=== PATIENT | male | born 1950 | race Caucasian/White ===

== ENCOUNTER 2017-07-23 08:57 | Emergency (ER) | payer BC ==
[~2017-07-23] VITALS: Ht 190.5 cm; Wt 103.0 kg
[~2017-07-23 08:57] MED LIST: ALLO100 PO; ASPI81EC PO; ATOR80 PO; BASAGLAR K100 UNIT/1 SC; CALC.25; CARV3.125 PO; CARV6.25 PO; CLOP75 PO; COLCRYS0.6 MG PO; DOCU100; ENTRESTO 24 MG1 EACH PO; FURO80 PO; GLIP5 PO; HYDRA25 PO; INSUASPI SUBQ; INSULANI SUBQ; INSULANPEN; MECL25 PO; METO2.5; METO2.5 PO; MIRALAX119 GM PO; NITR.1TP TOP; OXYC5; PANT40 PO; PARI1 PO; POTA10T PO; POTCHL20ER PO; Percocet 10-321 EACH PO; SENN187 PO; SPIR25 PO; Stool Softener100 MG PO; Systane 0.3-0.415 ML BOTHEYES; TEMA15; TEMA15 PO; WARF4 PO
[2017-07-23] MEDS ORDERED: METO10 PO (09:30)
[2017-07-23 09:53] LABS: BASOPHILS ABSOLUTE AUTO 0.04 K/mm3 (0.00-0.23); BASOPHILS PERCENT AUTO 1 % (0-2); EOSINOPHILS ABSOLUTE AUTO 0.56 K/mm3 (0.00-0.68); EOSINOPHILS PERCENT AUTO 7 % (0-6); Hematocrit 37.9 % (37.0-53.0); Hemoglobin 11.8 g/dL (13.5-17.5); IMMATURE GRAN ABSOLUTE AUTO 0.02 K/mm3 (0.00-0.10); IMMATURE GRAN PERCENT AUTO 0 % (0-1); LYMPHOCYTES ABSOLUTE AUTO 0.46 K/mm3 (0.84-5.20); LYMPHOCYTES PERCENT AUTO 6 % (21-46); MONOCYTES ABSOLUTE AUTO 0.56 K/mm3 (0.16-1.47); MONOCYTES PERCENT AUTO 7 % (4-13); Mean Corpuscular HGB 28.8 pg (26.0-34.0); Mean Corpuscular HGB Conc 31.1 g/dL (31.5-36.5); Mean Platelet Volume 12.4 fL (9.1-12.4); NEUTROPHILS PERCENT AUTO 78 % (41-73); Platelet Count 172 K/mm3 (150-400); RDW Coefficient Variation 17.6 % (11.7-14.2); RDW Standard Deviation 59.6 fL (35.1-46.3); White Blood Cell Count 7.54 K/mm3 (4.00-11.30)
[2017-07-23 09:58] LABS: Mean Corpuscular Volume 92 fL (80-100)
[2017-07-23 10:13] LABS: Albumin, Blood 3.3 g/dL (3.4-5.0); Albumin/Globulin Ratio 0.9 (0.8-1.8); Bilirubin, Total 1.2 mg/dL (0.1-1.0); Bun/Creatinine Ratio 28.2 (12.0-20.0); Creatinine, Blood 2.84 mg/dL (0.60-1.20); Globulin, Blood 3.6 g/dL (2.2-4.0); Potassium, Blood 4.2 mmol/L (3.5-5.5); Total Protein, Blood 6.9 g/dL (6.4-8.2); Troponin I 0.04 ng/mL (0.000-0.040)
[2017-07-23] MEDS ORDERED: Lasix40 MG PO (10:54)
== END 2017-07-23 12:39 | disposition home or self-care (01) ==
LOC: ER 08:57
PROVIDERS: Emergency Medicine
DX: I11.0 Hypertensive heart disease with heart failure (principal); I50.9 Heart failure, unspecified; R60.0 Localized edema; I48.91 Unspecified atrial fibrillation
CPT/HCPCS: 36415; 71046; 80053; 83880; 84484; 85025; 93005; 93010; 96374; 99283; J1940

== ENCOUNTER 2017-07-25 10:40 | Day surgery (SDC) | payer BC ==
[~2017-07-25 10:40] MED LIST changes: +Lasix40 MG PO; +METO10 PO
== END 2017-07-25 16:00 | disposition home or self-care (01) ==
LOC: ATC 10:40
DX: I11.0 Hypertensive heart disease with heart failure (principal); I42.9 Cardiomyopathy, unspecified; E11.40 Type 2 diabetes mellitus with diabetic neuropathy, unspecified; I48.0 Paroxysmal atrial fibrillation; I50.40 Unspecified combined systolic (congestive) and diastolic (congestive) heart failure; Z79.4 Long term (current) use of insulin
CPT/HCPCS: 96365; J1940

== ENCOUNTER 2017-09-19 09:09 | Inpatient (IN) | payer MEDICARE, BC ==
[~2017-09-19] VITALS: Ht 190.5 cm; Wt 99.8 kg
[2017-09-19] MEDS ORDERED: METO2.5 PO (09:44)
[2017-09-19] MEDS ORDERED: TORSE20 PO (09:45)
[2017-09-19] MEDS ORDERED: POTCHL20ER PO (09:46)
[2017-09-19] MEDS ORDERED: SENEXON-S TABL1 EACH (09:48)
[2017-09-19 09:53] LABS: BASOPHILS ABSOLUTE AUTO 0.02 K/mm3 (0.00-0.23); BASOPHILS PERCENT AUTO 0 % (0-2); EOSINOPHILS ABSOLUTE AUTO 0.27 K/mm3 (0.00-0.68); EOSINOPHILS PERCENT AUTO 4 % (0-6); Hemoglobin 11.9 g/dL (13.5-17.5); IMMATURE GRAN ABSOLUTE AUTO 0.03 K/mm3 (0.00-0.10); IMMATURE GRAN PERCENT AUTO 0 % (0-1); LYMPHOCYTES ABSOLUTE AUTO 0.47 K/mm3 (0.84-5.20); LYMPHOCYTES PERCENT AUTO 7 % (21-46); MONOCYTES ABSOLUTE AUTO 0.33 K/mm3 (0.16-1.47); MONOCYTES PERCENT AUTO 5 % (4-13); Mean Corpuscular HGB 28.7 pg (26.0-34.0); Mean Corpuscular HGB Conc 31.3 g/dL (31.5-36.5); Mean Corpuscular Volume 92 fL (80-100); Mean Platelet Volume 12.2 fL (9.1-12.4); NEUTROPHILS ABSOLUTE AUTO 6.07 K/mm3 (1.96-9.15); NEUTROPHILS PERCENT AUTO 84 % (41-73); Platelet Count 138 K/mm3 (150-400); RDW Coefficient Variation 19.3 % (11.7-14.2); RDW Standard Deviation 63.8 fL (35.1-46.3); Red Blood Cell Count 4.14 M/mm3 (4.30-5.90); White Blood Cell Count 7.19 K/mm3 (4.00-11.30)
[2017-09-19 10:08] LABS: Magnesium, Blood 3.6 mg/dL (1.6-2.4); Troponin I 0.106 ng/mL (0.000-0.040)
[2017-09-19 10:09] LABS: Albumin, Blood 3.8 g/dL (3.4-5.0); Creatinine, Blood 4.31 mg/dL (0.60-1.20); Globulin, Blood 3.9 g/dL (2.2-4.0); Potassium, Blood 3.8 mmol/L (3.5-5.5); Total Protein, Blood 7.7 g/dL (6.4-8.2)
[2017-09-19 10:11] LABS: International Normalized Ratio 1.3; Prothrombin Time Results 13.2 Sec (9.7-11.5)
[2017-09-19 10:12] LABS: Thyroid Stimulating Hormone 2.81 uIU/mL (0.360-4.800)
[2017-09-19 10:16] LABS: Bun/Creatinine Ratio 38.7 (12.0-20.0)
[2017-09-19 10:50] LABS: Base Excess Venous 3.2 mmol/L; Bicarbonate Venous 26.2 mmol/L (24.0-30.0); PCO2 Venous 48.7 mmHg (38-42); PO2 Venous 46.4 mmHg (38-42); pH Blood Venous 7.37 (7.34-7.37)
[2017-09-19] MEDS ORDERED: FURO80 PO (14:50)
[2017-09-19] MEDS ORDERED: BASAGLAR K100 UNIT/1 SC (14:52)
[2017-09-20 05:41] LABS: Albumin, Blood 3.1 g/dL (3.4-5.0); Anion Gap 12 mmol/L (6-16); Blood Urea Nitrogen 170 mg/dL (8-24); Bun/Creatinine Ratio 39.6 (12.0-20.0); CO2, Blood 30 mmol/L (21-32); Calcium, Blood 8.7 mg/dL (8.5-10.1); Chloride, Blood 95 mmol/L (98-108); Creatinine, Blood 4.29 mg/dL (0.60-1.20); Glomerular Filtration Rate 15 (60-); Glucose, Blood 83 mg/dL (70-99); Phosphorus, Blood 5.4 mg/dL (2.5-4.9); Sodium, Blood 137 mmol/L (136-145)
[2017-09-21 08:20] LABS: Magnesium, Blood 3.3 mg/dL (1.6-2.4)
[2017-09-21 08:28] LABS: Bun/Creatinine Ratio 44.9 (12.0-20.0); Calcium, Blood 9.5 mg/dL (8.5-10.1); Creatinine, Blood 3.92 mg/dL (0.60-1.20); Potassium, Blood 3.1 mmol/L (3.5-5.5)
== END 2017-09-21 17:36 | DRG 291 ==
LOC: ER 09:09 → MEDS 09:10
PROVIDERS: Emergency Medicine; Internal Medicine
DX: I13.2 Hypertensive heart and chronic kidney disease with heart failure and with stage 5 chronic kidney disease, or end stage renal disease (principal); I50.43 Acute on chronic combined systolic (congestive) and diastolic (congestive) heart failure; N18.5 Chronic kidney disease, stage 5; F11.20 Opioid dependence, uncomplicated; E11.40 Type 2 diabetes mellitus with diabetic neuropathy, unspecified; E11.21 Type 2 diabetes mellitus with diabetic nephropathy; E11.22 Type 2 diabetes mellitus with diabetic chronic kidney disease; I25.5 Ischemic cardiomyopathy; R53.1 Weakness; I48.2 Chronic atrial fibrillation; I25.10 Atherosclerotic heart disease of native coronary artery without angina pectoris; M19.90 Unspecified osteoarthritis, unspecified site; Z66 Do not resuscitate; K21.9 Gastro-esophageal reflux disease without esophagitis; Z51.5 Encounter for palliative care; Z88.1 Allergy status to other antibiotic agents; Z88.8 Allergy status to other drugs, medicaments and biological substances; Z79.899 Other long term (current) drug therapy; Z95.5 Presence of coronary angioplasty implant and graft
CPT/HCPCS: 36415; 71046; 80048; 80053; 80069; 82803; 82947; 83690; 83735; 83880; 84443; 84484; 85025; 85610; 93005; 93010; 96374; 97116; 97161; 99285-25; G8978; G8979; J1815; J1940